=== PATIENT | male | born 1940 | race Caucasian/White ===

== ENCOUNTER → 2018-11-28 | Outpatient (CLI) | payer OTHER | END | disposition home or self-care (01) | LOC: PCVCCLINIC 14:35 | PROVIDERS: ATTEND Internal Medicine Cardiovascular Disease | DX: R55 Syncope and collapse (principal); R94.31 Abnormal electrocardiogram [ECG] [EKG]; R00.0 Tachycardia, unspecified; R06.09 Other forms of dyspnea; K21.9 Gastro-esophageal reflux disease without esophagitis; E78.00 Pure hypercholesterolemia, unspecified; Z79.899 Other long term (current) drug therapy; Z87.891 Personal history of nicotine dependence | CPT/HCPCS: 36415; 93005; G0463 ==

== ENCOUNTER → 2018-12-03 | Outpatient (CLI) | payer OTHER ==
[~2018-12-03] MED LIST: REGADENOSON 0.4 MG/5 ML DISP.SYRIN. IV ONE
--- NOTE | 2018-12-03 08:40 | PCVCIMAG ---
APPROVED REPORT Study performed: 12/03/2018 07:37:47 EXAM: Comprehensive 2D, Doppler, and color-flow Echocardiogram Patient Location: Echo lab Status: routine BSA: 1.90 HR: 86 bpmBP: 150/92 mmHg Rhythm: NSR Other Information Study Quality: Adequate Indications Dyspnea Syncope Tachycardia 2D Dimensions IVSd: 10.92 (7-11mm) LVDd: 40.65 mm PWd: 9.26 (7-11mm)Ascending Ao: 32.94 (22-36mm) LVDs: 29.82 (25-40mm) Left Atrium: 29.90 (27-40mm) Aortic Root: 33.99 mm LV Single Plane 4CH: 51.97 % LV Single Plane 2CH: 51.11 % Biplane EF: 51.3 % Volumes Left Atrial Volume (Systole) Single Plane 4CH: 29.82 mLSingle Plane 2CH: 33.37 mL LA ESV Index: 18.00 mL/m2 Aortic Valve AoV Peak Valdo.: 1.38 m/s AO Peak Gr.: 7.59 mmHgLVOT Max P.91 mmHg LVOT Max V: 0.99 m/s Mitral Valve E/A Ratio: 0.7 MV Decel. Time: 273.64 ms MV E Max Valdo.: 0.79 m/s MV A Valdo.: 1.17 m/s IVRT: 107.27 ms Pulmonary Valve PV Peak Valdo.: 0.99 m/sPV Peak Gr.: 3.95 mmHg Pulmonary Vein P Vein S: 0.30 m/sP Vein A: 0.31 m/s P Vein D: 0.45 m/sP Vein A Dur.: 124.6 msec P Vein S/D Ratio: 0.67 Tricuspid Valve TR Peak Valdo.: 2.74 m/s TR Peak Gr.: 30.07 mmHg TV Vmax: 0.54 m/s Left Ventricle The left ventricle is normal size. There is normal LV segmental wall motion. There is normal left ventricular wall thickness. Left ventricular systolic function is normal. The left ventricular ejection fraction is within the normal range. LVEF is 50%. Grade I - abnormal relaxation pattern. Right Ventricle The right ventricle is normal size. The right ventricular systolic function is normal. Atria The left atrium size is normal. The right atrium size is normal. Aortic Valve Mild aortic valve sclerosis. No aortic regurgitation is present. There is no aortic valvular stenosis. Mitral Valve The mitral valve is normal in structure. Mild posterior annular calcification. Mild mitral regurgitation. No evidence of mitral valve stenosis. Tricuspid Valve The tricuspid valve is normal in structure. Mild tricuspid regurgitation with PAP of 37 mmHg. Pulmonic Valve The pulmonary valve is normal in structure. There is no pulmonic valvular regurgitation. Great Vessels The aortic root is normal in size. IVC is normal in size and collapses >50% with inspiration. Pericardium There is no pericardial effusion. There is no pleural effusion. <Conclusion> The left ventricle is normal size. There is normal left ventricular wall thickness. Left ventricular systolic function is normal. Grade I - abnormal relaxation pattern. The right ventricle is normal size. The left atrium size is normal. Mild aortic valve sclerosis. The mitral valve is normal in structure. Mild posterior annular calcification. Mild mitral regurgitation. Mild tricuspid regurgitation with PAP of 37 mmHg.
--- NOTE | 2018-12-04 13:23 | PCVCIMAG ---
APPROVED REPORT Imaging Protocol: Rest Tc-99m/Stress Tc-99m 1 day Study performed: 12/03/2018 09:37:03 Indication: Syncope, Dyspnea, Tachycardia Patient Location: Out-Patient Stress Nurse: Cayla Juarez RN, Heidy Sanchez RN MI Tech:[facility] Ht: 5 ft 9 in Wt: 165 lbs BSA: 1.90 m2 HR: 78 bpm BP: 185/94 mmHg BMI: 24.36 Rhythm: Normal Sinus Rhythm Medical History Medical History: Former Smoker Medications: Protonix, Metoprolol Allergies: No known drug allergies Cardiac Risk Factors: Age Pretest Chest Pain Characteristics: No chest pain Exercise History: Sedentary Physical Disabilities: Poor balance, history of syncope Meds Held (24 hrs): Metoprolol Resting Data Rest SPECT myocardial perfusion imaging was performed in supine position 45 minutes following the intravenous injection of 10.8 mCi of Tc-99m Sestamibi. Time of rest injection: 0845 Date: 12/03/2018 Administration Route: IV Administration Site: Left AC Pharmacologic Stress Pharmacologic stress test was performed by injecting Regadenoson 0.4 mg IV push over 10-15 seconds immediately followed by the intravenous injection of 32.8 mCi of Tc-99m Sestamibi. Time of stress injection: 1015 Date: 12/03/2018 Administration Route: IV Administration Site: Left AC Gated Stress SPECT was performed 45 minutes after stress injection. The images were gated to evaluate regional wall motion and calculate left ventricular ejection fraction. Stress Test Details Stress Test: Pharmacologic stress testing performed using 0.4 mg of regadenoson per 5 mL given IV over 10 seconds. Reason for pharmacologic stress test: poor balance. HRMax Heart Rate (APMHR): 144 bpm Resting HR: 78 bpmTarget HR (85% APMHR): 122 bpm Max HR Achieved: 112 bpm % of APMHR: 77 Recovery HR: 100 bpm BP Resting BP: 185/94 mmHg Max BP: 185/93 mmHg Recovery BP: 158/88 mmHg ECG Resting ECG: Normal Sinus Rhythm Stress ECG: Sinus Tachycardia ST Change: Non-ischemic Arrhythmia: None Recovery ECG: Sinus Rhythm Clinical Reason for Termination: Completed protocol Stress Symptoms: Abdominal discomfort, Dyspnea Exercise duration: 0 min 55 sec Symptoms resolved during recovery. Study Quality Study: Good Artifact: Mild Diaphragmatic artifact Study Data Post stress, the left ventricular ejection was 61%.. SSS: 3 SRS: 3 SDS: 1 TID = 0.88. Perfusion There is a small area of mildly reduced uptake in the apical segment of the inferior wall which is seen on the stress images as well as the resting images. This area thickens and moves normally and is most consistent with attenuation artifact. Wall Motion Normal left ventricular wall motion. Nuclear Conclusion ECG Findings: negative for ischemia Clinical Findings: non-diagnostic Nuclear Findings: negative for ischemia Exercise Capacity: not assessed Left Ventricular Function: normal Risk Study: low This study is of low probability for inducible ischemia or prior infarct. Normal global and segmental LV systolic function. Artifact: Mild Diaphragmatic artifact
== END | disposition home or self-care (01) ==
LOC: PCVCIMAG 07:40
PROVIDERS: ATTEND Internal Medicine Cardiovascular Disease
DX: I08.3 Combined rheumatic disorders of mitral, aortic and tricuspid valves (principal); I47.1 Supraventricular tachycardia; R55 Syncope and collapse; R06.09 Other forms of dyspnea
CPT/HCPCS: 78452; 93017; 93306; A9500; J2785

== ENCOUNTER → 2018-12-14 | Outpatient (CLI) | payer OTHER | END | disposition home or self-care (01) | LOC: PCVCCLINIC 10:00 | PROVIDERS: ATTEND Internal Medicine Cardiovascular Disease | DX: R55 Syncope and collapse (principal); K21.9 Gastro-esophageal reflux disease without esophagitis; R00.0 Tachycardia, unspecified; E78.00 Pure hypercholesterolemia, unspecified | CPT/HCPCS: G0463 ==